=== PATIENT | male | born 1995 | race Asian ===

== ENCOUNTER → 2020-03-08 | Outpatient (CLI) | payer OTHER ==
--- NOTE | 2020-03-14 07:23 | PFTRPT ---
Site: [facility], [address] [place] [address], [id number] ID: [id number] Name: KAROL DALY Visit Date: 03/08/2020 Second ID: [id number] Referring Doctor: MS LORAINE Dozier Melissa Reviewing Doctor: Sergio Reza MD [employer]: Carmen Gant Age: 24 : 1995 Sex: Male Race: <Unspecified> Height: 69.00 Inches Weight: 150.00 Lbs BSA: 1.83 Order IDs: [id number] Requested Test(s): <RESP-PFT.THOR GAS> Diagnosis: DYSPNEA test meet the ATS standards for acceptability and repeatability. IVC is less than 85% of VC. DLCO may be underestimated. Pt was given four puffs of albuterol for post bronchodilator. Review Status: Not Reviewed Pre-Bronch Post-Bronch Pred Actual %Pred Actual %Chng SPIROMETRY FVC (L) 5.36 3.78 70 3.78 FEV1 (L) 4.42 3.64 82 3.69 1 FEV1/FVC (%) 83 96 116 98 1 FEF 25% (L/sec) 7.83 6.60 84 7.56 14 FEF 50% (L/sec) 5.36 5.89 109 6.99 18 FEF 75% (L/sec) 2.10 3.12 148 4.06 30 FEF 25-75% (L/sec) 4.56 5.12 112 6.25 22 FEF Max (L/sec) 10.00 7.03 70 7.64 8 FIVC (L) 3.55 3.16 -10 FIF 50% (L/sec) 5.59 4.25 76 2.59 -39 FIF Max (L/sec) 4.29 3.29 -23 MVV (L/min) 179 128 71 Expiratory Time (sec) 7.43 6.90 -7 Back Extrap Vol (L) 0.12 0.17 38 Time To FEFmax (sec) 0.144 0.166 15 LUNG VOLUMES SVC (L) 5.19 3.21 61 IC (L) 3.46 2.55 73 ERV (L) 1.73 0.66 38 TGV (L) 3.22 3.21 99 RV (Pleth) (L) 1.49 2.54 170 TLC (Pleth) (L) 6.68 5.76 86 RV/TLC (Pleth) (%) 22 44 200 DIFFUSION DLCOunc (ml/min/mmHg) 35.69 28.70 80 DLCOcor (ml/min/mmHg) 35.69 29.03 81 DL/VA (ml/min/mmHg/L) 5.34 5.70 106 VA (L) 6.68 5.10 76 BHT (sec) 10.35 IVC (L) 2.91 TLC (SB) (L) 5.25 AIRWAYS RESISTANCE Raw (cmH2O/L/s) 1.45 1.54 106 Gaw (L/s/cmH2O) 1.03 0.65 63 sRaw (cmH2O*s) 4.76 5.24 110 sGaw (1/cmH2O*s) 0.20 0.19 95 BLOOD GASES Hgb (gm/dL) 14.2
== END ==
LOC: M CARPUL 14:14
PROVIDERS: ATTEND Nurse Practitioner Primary Care
DX: R06.09 Other forms of dyspnea (principal)

== ENCOUNTER → 2020-07-25 | Outpatient (CLI) | payer OTHER ==
[~2020-07-25] MED LIST: METHACHOLINE KIT (J7674) INH ONE
--- NOTE | 2020-07-25 11:23 | PFTRPT ---
Height: 69.00 Inches Weight: 155.00 Lbs BSA: 1.85 Diagnosis: R06.02 DATE: 07/25/2020 ORDERED BY: Jacque Ngo RN, ANP QUALITY: Study of excellent technical quality. PROCEDURE: Under protocol, methacholine was administered; some mild difficulty with effort. Even after a total dose of 25 mg, or 188.875 CDUs, no provocation dose ever achieved. IMPRESSION: Negative methacholine challenge study. MTDD
== END ==
LOC: M CARPUL 10:35
PROVIDERS: ATTEND Nurse Practitioner Adult Health
DX: R06.02 Shortness of breath (principal)

== ENCOUNTER → 2020-07-25 | Outpatient (CLI) | payer OTHER ==
--- NOTE | 2020-07-27 16:12 | REP ---
NONCONTRAST CHEST CT CLINICAL: Shortness of breath. TECHNIQUE: Axial noncontrast images from the thoracic inlet to the upper abdomen with coronal and sagittal reformations. COMPARISON: None. FINDINGS: Small areas of chronic appearing linear scarring identified in the posterior right apex and within the basilar right middle lobe. These findings are nonspecific and may represent sequelae of prior trauma or infectious process. The lung agee are otherwise well aerated and clear. No acute consolidation, effusion, significant nodule, or mass lesion. No pneumothorax. Tracheobronchial tree is patent. No obvious adenopathy. Mediastinum demonstrates normal appearance to the thoracic aorta, pulmonary vasculature, and heart/pericardium. Surrounding musculoskeletal structures are intact. IMPRESSION: * Subtle areas of presumed chronic linear scarring involving the right hemithorax should be correlated with physical examination and history. * Otherwise normal examination without acute mediastinal or pleuroparenchymal process appreciated. MTDD
== END ==
LOC: M RAD 07:30
PROVIDERS: ATTEND Nurse Practitioner Adult Health
DX: R06.02 Shortness of breath (principal); R91.8 Other nonspecific abnormal finding of lung field; R07.9 Chest pain, unspecified
CPT/HCPCS: 71250; 94070; J7674